=== PATIENT | male | born 1995 | race Hispanic/Latino ===

== ENCOUNTER 2019-02-05 11:59 | Emergency (ER) | payer SELFPAY ==
[~2019-02-05] VITALS: Ht 180.3 cm; Wt 99.8 kg
[~2019-02-05 11:59] MED LIST: BACTRIM DS TAB1 EACH PO
--- OUTSIDE RECORDS SUMMARY | 2019-02-05 12:02 | XMS REPORT ---
[facility] Address Unknown Phone Unavailable Care Team Providers Care Fuel Buyer Name Role Phone Unavailable Unavailable Payers Payer Name Policy Type Policy Number Effective Date Expiration Date Problems This patient has no known problems. Allergies, Adverse Reactions, Alerts Allergy Name Allergy Type Status Severity Reaction(s) Onset Date Inactive Date Treating Clinician Comments No Known Allergies DA Active U 2018-12-26 00:00:00 No Known Allergies DA Active U 2014-01-11 00:00:00 Medications This patient has no known medications. Results Test Description Test Time Test Comments Text Results Atomic Results Result Comments - XR FOREARM 2 VIEWS RT 2018-12-26 01:58:00 FAX: Oumou Frankel NP [place]: St: PRE FAX: Chris Davis MD Name: INA ROSENTHAL [facility] : 1995 Age/S: 23/M [place] ade Unit #: [id number] Loc: [place] [address] Phys: Oumou Frankel NP Acct: [id number] Dis Date: Status: PRE ER PHONE #: [phone] Exam Date: 12/26/2018 0138 FAX #: [phone] Reason: pain sp punching wall EXAMS: CPT CODE: [id number] XR FOREARM 2 [place] [address] - XR WRIST 3 + V RT, - XR FOREARM 2 VIEWS RT, 12/26/2018 1:25 AM Reason For Examination: pain sp punching wall Comparison: None available Location: R16: Findings: There is apex dorsal angulated minimally displaced fracture of the head neck junction of the 5th metacarpal. No fractures or dislocations are seen within the wrist or forearm Impression: There is apex dorsal angulated minimally displaced fracture of the head neck junction of the 5th metacarpal. No fractures or dislocations are seen within the wrist or forearm at 0158 Reported and signed by: Cortney Delgado M.D. CC: Oumou Frankel NP; Chris Robles MD Technologist: RT SHILPI Trnscrd Date/Time/By: 12/26/2018 (0158) : By: [email or web address] Orig Print D/T: S: 12/26/2018 (0201) PAGE 1 Signed Report - XR WRIST 3 + V RT 2018-12-26 01:58:00 FAX: Oumou Frankel NP [place]: St: PRE FAX: Chris Davis MD Name: INA ROSENTHAL [facility] : 1995 Age/S: 23/M [address] [facility] Unit #: [id number] Loc: [place] [address] Phys: Oumou Frankel NP Acct: [id number] Dis Date: Status: PRE ER PHONE #: [phone] Exam Date: 12/26/2018 0134 FAX #: [phone] Reason: pain sp punching wall EXAMS: CPT CODE: [id number] XR WRIST 3 + V RT [address] - XR WRIST 3 + V RT, - XR FOREARM 2 VIEWS RT, 12/26/2018 1:25 AM Reason For Examination: pain sp punching wall Comparison: None available Location: R16: Findings: There is apex dorsal angulated minimally displaced fracture of the head neck junction of the 5th metacarpal. No fractures or dislocations are seen within the wrist or forearm Impression: There is apex dorsal angulated minimally displaced fracture of the head neck junction of the 5th metacarpal. No fractures or dislocations are seen within the wrist or forearm at 0158 Reported and signed by: Cortney Delgado M.D. CC: Oumou Frankel NP; Chris Robles MD Technologist: RT SHILPI Trnscrd Date/Time/By: 12/26/2018 (0158) : By: [email or web address] Orig Print D/T: S: 12/26/2018 (0201) PAGE 1 Signed Report - XR HAND 3 + V RT 2018-11-10 08:18:00 FAX: Chris Davis MD [place]: B St: REG FAX: Kirstin Barajas Name: INA ROSENTHAL [facility] : 1995 Age/S: 23/M [address] [facility] Unit #: [id number] Loc: [place] [address] Phys: Kirstin Barajas NP Acct: [id number] Dis Date: Status: REG ER PHONE #: [phone] Exam Date: 11/10/2018 0755 FAX #: [phone] Reason: LAC, GLASS, R/O FB EXAMS: CPT CODE: [id number] XR HAND 3 + V RT [address]808 CLINICAL HISTORY: Laceration with glass, R/O FB TECHNIQUE: AP, oblique, and lateral views of the right hand COMPARISON: None FINDINGS: No acute fracture or dislocation. Bony trabecular pattern is unremarkable. No cortical destruction or periosteal reaction. Joint spaces are preserved. Regional soft tissues are unremarkable. IMPRESSION: No acute osseous abnormality. No radiopaque foreign body. at 0818 Reported and signed by: Tia Lester D.O. CC: Chris Robles MD; Kirstin Barajas NP Technologist: AIMEE LOFTON RT(R) Trnscrd Date/Time/By: 11/10/2018 (817) : By: [email or web address] Orig Print D/T: S: 11/10/2018 (59) PAGE 1 Signed Report - XR FOREARM 2 VIEWS RT 2018-11-10 08:16:00 FAX: Chris Davis MD [place]: B St: REG FAX: Kirstin Barajas Name: INA ROSENTHAL [facility] : 1995 Age/S: 23/M [address] [facility] Unit #: [id number] Loc: [place] [address] Phys: Kirstin Barajas NP Acct: [id number] Dis Date: Status: REG ER PHONE #: [phone] Exam Date: 11/10/2018 0755 FAX #: [phone] Reason: LAC, GLASS, R/O FB EXAMS: CPT CODE: [id number] XR FOREARM [address] [place] [address] CLINICAL HISTORY: Laceration with glass, R/O FB TECHNIQUE: AP and lateral views of the right forearm COMPARISON: None IMPRESSION: No acute fracture. Bony trabecular pattern is unremarkable. No cortical destruction or periosteal reaction. Elbow and wrist joints do not appear dislocated. Ventral forearm soft tissue emphysema and 1.5 mm radiopaque foreign body. at 0816 Reported and signed by: Tia Lester D.O. CC: Chris Robles MD; Kirstin Barajas NP Technologist: AIMEE DANIEL(R) Trnscrd Date/Time/By: 11/10/2018 (0816) : By: [email or web address] Orig Print D/T: S: 11/10/2018 (3264) PAGE 1 Signed Report
[2019-02-05] MEDS ORDERED: TRAMADOL HCL 50 MG TAB PO NR (12:15)
--- NOTE | 2019-02-05 12:58 | Diagnostic Imaging Report ---
EXAMINATION: HAND 3+ VIEWS RIGHT, WRIST COMPLETE RIGHT INDICATION: Trauma. COMPARISON: None FINDINGS: Right hand: There is a mildly displaced acute fracture of the neck of the fifth metacarpal. Adjacent soft tissue swelling is present. No other fractures identified. No substantial degenerative change. Right wrist: No acute fracture or dislocation. Alignment is anatomic. IMPRESSION: Mildly displaced acute fracture of the neck of the fifth metacarpal. Signed by: Bereket Rinaldi MD on 02/05/2019 12:55 PM
== END 2019-02-05 13:17 | disposition home or self-care (01) ==
LOC: ER 11:59
DX: M79.641 Pain in right hand (principal); M25.531 Pain in right wrist; S62.336A Displaced fracture of neck of fifth metacarpal bone, right hand, initial encounter for closed fracture; W10.8XXA Fall (on) (from) other stairs and steps, initial encounter; Y92.008 Other place in unspecified non-institutional (private) residence as the place of occurrence of the external cause
CPT/HCPCS: 99283